=== PATIENT | female | born 1975 | race African-American/Black ===

== ENCOUNTER → 2019-09-29 08:40 | Outpatient (CLI) | payer OTHER, SELFPAY ==
--- NOTE | 2019-09-29 | DI.MRI.S_ITS ---
PROCEDURE: MR SHOULDER RT W CON INDICATIONS: PAIN IN RIGHT SHOULDER CERVIAL RADICULOPATHY TECHNIQUE: After the administration of 12 mL of dilute intra-articular Gadolinium contrast, oblique coronal T1 and T2 spin echo with fat saturation, oblique sagittal T1 spin echo with and without fat saturation, oblique sagittal T2 fast spin echo with fat saturation, axial T1 spin echo with fat saturation through the shoulder. COMPARISON: None. FINDINGS: Image quality: Excellent. Rotator cuff: There is a low-grade, partial, undersurface tear of the rotator cuff at the junction of the supraspinatus and infraspinous tendons (series 9, image 6; series 7, images 13-14 the supraspinatus and infraspinous tendons are thickened with increased internal signal compatible with tendinosis. The subscapularis tendon is intact throughout. No rotator cuff muscle atrophy on sagittal images. Bones and bursae: No bone marrow contusions or fractures. Mild acromioclavicular joint osteoarthritic degeneration. The acromion is downsloping, without an os acromiale. Fluid is noted in the subacromial/subdeltoid bursa compatible with moderate bursitis. Capsule and soft tissues: The labrum and glenohumeral ligaments appear intact. The long head of the biceps tendon demonstrates normal location and morphology. The rotator interval appears normal, without fibrosis. The coracohumeral ligament is of normal thickness. No intra-articular bodies. There is thickening of the synovium in the axillary pouch compatible with synovitis. IMPRESSION: 1. Low-grade, partial, undersurface tear of the rotator cuff at the junction of the supraspinatus and infraspinous tendons. 2. Supraspinous and infraspinatus tendinosis. 3. Mild acromioclavicular joint osteoarthritis. 4. Subacromial/subdeltoid bursitis. 5. Glenohumeral synovitis. Dictated by: Pricila Olivo MD, PhD on 09/29/2019 at 15:53 Approved by: Pricila Olivo MD, PhD on 09/30/2019 at 10:06
--- NOTE | 2019-09-29 | DI.RAD.S_ITS ---
PROCEDURE: FL SHOULDER INJECTION MR/CT RT INDICATIONS: PAIN IN RIGHT SHOULDER CERVIAL RADICULOPATHY TECHNIQUE: The indications, alternatives, benefits, risks, and complications of the procedure were explained to the patient. Written informed consent was obtained and placed in the chart. The shoulder was examined fluoroscopically and a site for needle placement chosen for entry into the glenohumeral joint from an anterior approach. The skin was prepped and draped in a sterile fashion, and 1% lidocaine infiltrated from skin down to joint capsule. A spinal needle was inserted into the glenohumeral joint, and a small amount of iodinated contrast media injected to confirm intra-articular placement of the needle tip. This was followed by approximately 12 mL dilute solution of a gadolinium containing MR contrast agent. The needle was removed and a dressing was applied. The patient was given postprocedural instructions and sent to the MR suite for MR imaging. FINDINGS: A single fluoroscopic spot image demonstrates intra-articular location of injected iodinated contrast. IMPRESSION: Successful fluoroscopically guided administration of dilute Gadolinium solution into the shoulder joint for MR arthrogram. Dictated by: Sammy Fermin M.D. on 09/29/2019 at 10:59 Approved by: Sammy Fermin M.D. on 09/29/2019 at 10:59
--- NOTE | 2019-09-29 | DI.MRI.S_ITS ---
PROCEDURE: MR CERVICAL SPINE WO CON INDICATIONS: PAIN IN RIGHT SHOULDER CERVIAL RADICULOPATHY TECHNIQUE: Noncontrast sagittal T1 spin echo and T2 fast spin echo, sagittal STIR, foraminal oblique sagittal T2 fast spin echo, and axial gradient echo or T2 fast spin echo through the cervical spine. COMPARISON: None. FINDINGS: Image quality: Excellent. Alignment and Curvature: There is loss of normal cervical lordosis. Bone Marrow: Marrow demonstrates normal overall signal. Spinal Cord: Visualized spinal cord has normal size and signal. No cerebellar tonsillar herniation. Paraspinous Soft Tissues: No paravertebral masses. Prevertebral soft tissues are normal in thickness. C2-C3: Normal appearance. C3-C4: Mild disc desiccation. No significant canal, nor foraminal stenosis. C4-C5: Mild disc height loss. Moderate disc desiccation. Mild diffuse disc bulge with superimposed left paracentral protrusion. Mild facet and uncovertebral hypertrophy bilaterally. Severe canal stenosis. Mild left cord flattening. Mild bilateral foraminal stenosis. C5-C6: Mild disc height loss. Moderate disc desiccation. Mild diffuse disc bulge. Mild facet and uncovertebral hypertrophy bilaterally. Moderate canal stenosis. Mild bilateral foraminal stenosis. C6-C7: Mild facet and uncovertebral hypertrophy bilaterally. No canal stenosis. Mild bilateral foraminal stenosis. C7-T1: Mild facet and uncovertebral hypertrophy bilaterally. Mild canal stenosis. Mild bilateral foraminal stenosis. IMPRESSION: 1. Multilevel degenerative disc and facet disease, as well as uncovertebral hypertrophy. 2. Multilevel canal stenoses, worst at C4-C5, where there is associated cord flattening present as described above. 3. Mild multilevel foraminal stenoses. Dictated by: Maria Elena Sykes M.D. on 09/29/2019 at 10:49 Approved by: Maria Elena Sykes M.D. on 09/29/2019 at 10:52
== END ==
PROVIDERS: Referring Provider Registered Nurse Diabetes Educator; Visit Provider Registered Nurse Diabetes Educator
DX: M50.121 Cervical disc disorder at C4-C5 level with radiculopathy (principal); M47.22 Other spondylosis with radiculopathy, cervical region; M48.02 Spinal stenosis, cervical region; M25.511 Pain in right shoulder; M75.111 Incomplete rotator cuff tear or rupture of right shoulder, not specified as traumatic; M19.011 Primary osteoarthritis, right shoulder; M75.51 Bursitis of right shoulder; M65.811 Other synovitis and tenosynovitis, right shoulder
CPT/HCPCS: 23350; 72141; 73222; 77002

== ENCOUNTER → 2020-06-15 08:52 | Outpatient (CLI) | payer OTHER, SELFPAY ==
[2020-06-15 12:35] LABS: COVID19 -Nasal RAPID Negative (Negative)
== END ==
PROVIDERS: Visit Provider Student in an Organized Health Care Education/Training Program
DX: Z11.59 Encounter for screening for other viral diseases (principal)
CPT/HCPCS: 87635

== ENCOUNTER 2020-06-16 06:01 | Day surgery (SDC) | payer OTHER, SELFPAY ==
[2020-06-16] VITALS (11 sets, daily range): BP systolic 137–158; BP diastolic 73–99; PULSE 64–93; RESP 10–18; TEMP 35.9–36.5; O2SAT 95–100; BMI 27.4
[2020-06-16] MEDS: LACTATED RINGERS 1,000 ML 42 ML IV ×2 (07:17→08:53)
[2020-06-16] MEDS: MIDAZOLAM 2 MG/2 ML VIAL IV (07:38)
[2020-06-16] MEDS: fentaNYL 100 MCG/2 ML INJ 50 MCG IV ×3 (07:38→10:01)
--- NOTE | 2020-06-16 07:40 | PM.PREOP ---
Pre-operative Note COVID-19 COVID-19 status: Negative Result date/Date tested (Pos, Neg/Pending): 06/14/20 Interval Note History & Physical reviewed/Exam performed by Physician: Yes Changes to H&P: No
[2020-06-16] MEDS: CEFAZOLIN 2 GM/100 ML FROZ.PIGGY IV (07:44)
--- NOTE | 2020-06-16 07:50 | SUR.PREOP ---
Block start time [0738] . Monitoring initiated and maintained throughout procedure. Oxygen 2l/nc and medications given per anesthesiologist instructions. Patient remained stable throughout procedure, no adverse reactions noted. Block end time [0741].
--- NOTE | 2020-06-16 08:19 | SUR.OPER ---
Beach chair with [place] shoulder positioner. Lower body on padded OR bed. Head in foam padded head cradle, secured with straps. Non-operative arm secured <90 degrees abduction. Pillow under knees. Safety belt at thigh. Cloth tape over blanket over lower legs.
[2020-06-16] MEDS: SODIUM CHLORIDE IRRIG SOLUTION 3,000 ML, EPINEPHrine 1 MG IRR (08:45)
--- NOTE | 2020-06-16 09:33 | PM.OP.1 ---
Operative Date/Time/Diagnoses Date of procedure: 06/16/20 Time of procedure: 08:00 Pre-op diagnosis: Right shoulder partial rotator cuff tear Post-op diagnosis: same Procedure & Clinicians Procedure: Right shoulder arthroscopic debridement with subacromial decompression and repair of partial rotator cuff tear Same procedure as scheduled: Yes Indications: Right shoulder impingement with partial rotator cuff tear Surgeon: Jitendra Dick Mechanical Engineering Specialist: Gustavo Desai Anesthesia Type: General and Peripheral nerve block Operative Notes Findings: High-grade articular sided partial tear involving posterior aspect of the supraspinatus. No sign of any full-thickness tears. No sign of any significant arthritic changes in the glenohumeral joint. Some degenerative changes throughout the labrum but no significant biceps pathology or tearing of the bicipital anchor. No loose bodies. Subscapularis free of any significant tearing. Signs of synovitis and bursitis in the subacromial and subdeltoid space. Mild impingement lesion with a type 2 acromion. Some early signs of AC joint arthritis. Closure Type: primary Specimen(s): none sent Estimated Blood Loss (mL): 5 Blood products transfused: none Procedure in detail: On date of service, Patient was met in the holding area. The operative site was signed and witnessed by the OR staff. The surgeries once again discussed with the patient and any remaining questions they had were answered fully. Patient was taken back to the operating theater and placed on the operating table in a supine position. Great care was taken to ensure that all bony prominences were properly padded. Patient was then placed into the beach chair position. The head and neck were properly positioned and secured. A timeout was performed verifying patient's name, procedure, and the operative site. The upper extremity was then prepped and draped in the normal sterile fashion. Previously, the bony anatomy and portal sites were marked out as well as injected with Marcaine with epinephrine. An 11 blade was used to make an incision in the posterior aspect of the shoulder. The camera was placed, and a diagnostic shoulder scope was performed. Findings listed above. Next under direct visualization, a anterior portal was made. Extensive debridement of the glenohumeral joint was performed. As stated above patient had some degenerative tearing to the labrum as well as signs of partial tearing throughout the articular side the rotator cuff. We also debrided the partial articular sided rotator cuff tear. This was then tagged with suture material so we could find the exact same spot on the bursal side. Next the camera was placed into the subacromial space. A lateral portal was obtained under direct visualization. A combination of the shaver and vapor wand, a debridement of the inflamed tissue as well as inflamed bursa was performed. The lateral gutter was also cleaned out. This gave us good visualization of the bursal aspect of the rotator cuff as well as the acromial arch. There was an obvious impingement lesion in the acromial arch. Next we turned our attention to the subacromial decompression. Next, a mechanical rasp was then used to do a subacromial decompression. This allowed us to convert the acromion to a type I acromial. This also allowed us to shave down the bony lesion in the acromial space. The rasp was placed into the lateral portal as well as the anterior portal in order to do a complete subacromial decompression. We next turned our attention to the distal clavicle. Using the shaver in the vapor wand we were able to clean out all the soft tissue around the distal clavicle as well as into the a.c. joint. This gave us good visualization of the arthritic changes to the distal clavicle as well as good of the a.c. joint allowing us to assess our distal clavicle excision. Of the inferior osteophytes coming off the distal clavicle. Using the mechanical rasp in the anterior portal, we were able to remove the inferior osteophytes as well as do a distal clavicle excision. The camera was then placed into the anterior portal which gave us a direct visualization of the a.c. joint allowing us to assess the distal clavicle excision. We then turned our attention to the rotator cuff tear. Camera was placed back into the glenohumeral joint. Two suture tacks were placed spanning the region of partial tearing. Once the anchors were inserted camera was back into the subacromial space where we could see the suture material. One strand from each anchor was pulled out through a cannula. This was tied into a non sliding knot. The remaining sutures were then used to pull this back into the shoulder anchoring the knot across partial tear. Next, the 2 remaining sutures which were 1 limb from each anchor were then pulled out through the cannula and then placed into a SwiveLock anchor. This anchor was then inserted laterally providing a tenodesis and anchoring of the partial rotator cuff tear. Shoulder was taken through range of motion and re-evaluated. There was good fixation of the partial tear and no other abnormalities noted. There had been good decompression of the subacromial space as well as the distal clavicle. Shoulder was cleaned dried dressed and patient was taken to the PACU in stable condition. Complications: none Post-operative Condition: stable Disposition: PACU Plan for aftercare: Patient will follow our postoperative protocol for PASTA repair
[2020-06-16] MEDS: HYDROCODONE/ACET 5/325 TABLET 1 TAB PO (10:24)
[2020-06-16] MEDS: hydrOXYzine pamoate 25 MG CAPSULE PO (10:52)
[2020-06-16] MEDS: ONDANSETRON 4 MG/2 ML INJ IV (11:15)
== END 2020-06-16 11:50 | disposition home or self-care (01) ==
PROVIDERS: Referring Provider Orthopaedic Surgery; Visit Provider Orthopaedic Surgery
PROC: (CPT 29827; principal; 2020-06-16 07:45)
DX: M75.111 Incomplete rotator cuff tear or rupture of right shoulder, not specified as traumatic (principal); M75.41 Impingement syndrome of right shoulder; M19.011 Primary osteoarthritis, right shoulder; M65.811 Other synovitis and tenosynovitis, right shoulder; M75.51 Bursitis of right shoulder; M25.711 Osteophyte, right shoulder; F12.90 Cannabis use, unspecified, uncomplicated; I10 Essential (primary) hypertension; G43.909 Migraine, unspecified, not intractable, without status migrainosus
CPT/HCPCS: 29827; 29824; 29826; 29823; 64415; J0171; J0330; J0690; J1100; J2250; J2405; J2704; J3010

== ENCOUNTER 2021-03-12 12:17 | Emergency (ER) | payer OTHER, SELFPAY ==
[2021-03-12 12:24] VITALS: BP 153/73; PULSE 75; RESP 18; TEMP 36.4; O2SAT 98; BMI 28.0
--- NOTE | 2021-03-12 13:24 | ED.BACK ---
HPI - Back Pain/Injury General Chief Complaint: Back Pain/Injury Stated Complaint: Rt Sided Lower Back Pain Time Seen by Provider: 03/12/21 13:24 Source: patient Limitations: no limitations History of Present Illness HPI Narrative: This is a 45-year-old female comes emergency department with complaint of right-sided lower back pain. Patient states on Saturday, 2 days ago she was opening a door while caring a box in the box slipped and she went to grab it and tweaked her back. She states she has had pain across both sides of the back but a low bit more on the right than the left since then and has not been improving. She does have a history of low back pain and had a laminectomy several years ago. She states she has had mild symptoms in the particularly at the end of the day but always resolved on its own and she has not required any hospital or doctor visits. Patient states her pain has been persistent and not improved. She did try Tylenol with minimal improvement. She tried a [place] which was much more helpful but pain returned after it wore off. Patient does have some radiation down her legs particularly when going from a seated to standing position. Patient denies any new numbness or tingling currently but had some immediately afterwards. She wide 1 episode where she states she did make it to the bathroom to urinate but has not had fecal or urinary incontinence or loss of sensation or saddle anesthesia. Patient has had shoulder surgery but no other major surgeries. She has history of hypertension and takes medication for this. She was seen by Dr. Garcia in [place] for her spinal surgeon. Related Data Home Medications Medication Instructions Recorded Confirmed acetaminophen 325 mg capsule 500 mg PO Q4H PRN 06/16/20 06/16/20 (Tylenol) Previous Rx's Medication Instructions Recorded hydrocodone 5 mg-acetaminophen 325 2 tab PO Q4-6H PRN #60 tab 06/16/20 mg tablet ([place]) hydroxyzine pamoate 25 mg capsule 25 mg PO TID-QID PRN #60 cap 06/16/20 (Vistaril) diazepam 10 mg tablet (Valium) 10 mg PO TID PRN #10 tab 03/12/21 hydrocodone 5 mg-acetaminophen 325 1 tab PO Q6H PRN #10 tab 03/12/21 mg tablet Allergies Allergy/AdvReac Type Severity Reaction Status Date / Time codeine [CODEINE] Allergy Severe NAUSEA, Verified 06/16/20 06:39 THROAT CLOSES UP pineapple [PINEAPPLE] Allergy Unknown ITCHING Verified 06/16/20 06:39 PURPURA, ORAL CAVITY SWELLING Review of Systems Review of Systems ROS Unobtainable: All systems reviewed & are unremarkable except as noted in HPI and below Patient History Medical History Arthritis of right acromioclavicular joint Arthritis of right glenohumeral joint DDD (degenerative disc disease) Partial tear of rotator cuff Rotator cuff impingement syndrome of right shoulder Spinal stenosis, cervical region Social History household members: spouse Smoking Status: Current every day smoker alcohol intake: current Smoking Status: Current every day smoker alcohol intake frequency: 0-2 drinks per day Substance Use Type: marijuana Exam Narrative Exam Narrative: GENERAL: Alert and oriented x three, female in moderate distress. Patient is much more comfortable standing than seated. HEENT: Head normocephalic, atraumatic, EOMI, pupils reactive, face symmetric, moist mucous membranes NECK: Supple, full range of motion CARDIOVASCULAR: Regular rate and rhythm without murmurs, rubs or gallops. RESPIRATORY: Breath sounds equal bilaterally, no wheezes rales or rhonchi. ABDOMEN: Soft, nontender. Normoactive bowel sounds all 4 quadrants. No guarding or rebound, rigidity, no mass : No CVA tenderness BACK: No cervical, thoracic or lumbar vertebral point tenderness. Patient is tender on the left lateral lumbar soft tissue about 2-3 cm from the L3-L4 region. Have some muscle tightness on the right and has some right piriformis tenderness on palpation. Has decreased range of motion. Patient's gait is antalgic. Rectal exam is deferred. Muscle strength is 5/5 in lower extremities, DTRs are 2/4 and lower extremities. Sensation is intact in the lower extremities. EXTREMITIES: Normal range of motion, no clubbing or edema. Neurovascularly intact NEUROLOGICAL: Cranial nerves II through XII grossly intact. Moving all extremities SKIN: Warm, dry, no petechiae, no rashes or lesions. Initial Vital Signs Initial Vital Signs: Vital Signs Temperature 97.5 F L 03/12/21 12:24 Pulse Rate 75 03/12/21 12:24 Respiratory Rate 18 03/12/21 12:24 Blood Pressure 153/73 H 03/12/21 12:24 Pulse Oximetry 98 03/12/21 12:24 Course Orders Ordered: Discontinued Medications Diazepam (Diazepam 5 Mg Tablet) 10 mg PO NOW ONE Stop: 03/12/21 13:50 Last Admin: 03/12/21 14:00 Dose: 10 mg Documented by: NEVIN Ketorolac Tromethamine (Ketorolac 30 Mg/Ml Vial) 30 mg IM NOW ONE Stop: 03/12/21 13:50 Last Admin: 03/12/21 14:01 Dose: 30 mg Documented by: NEVIN Vital Signs Vital signs: Vital Signs - 8 hr 03/12/21 12:24 03/12/21 14:06 Temperature 97.5 F L Pulse Rate 75 61 Respiratory Rate 18 18 Blood Pressure 153/73 H 128/65 Pulse Oximetry 98 99 MDM - Back Pain/Injury MDM Narrative Medical decision making narrative: This is a 45-year-old female with history of low back pain who had laminectomy several years ago. She had exacerbating incident where she was opening a door holding a box started to slip and she caught it and tweaked her back. She has since had pain for the past 2 days which has not resolved. It does improve with [place] but then recurs. Patient has tried oral home medications [id number] as well as prescription but only has 2 tablets of [place] left. She had 1 episode where she urinated immediately when it occurred but states she was in significant pain and could not get to the bathroom. She has not had any additional episodes saddle anesthesia or other red flag symptoms. Plan for short course of narcotic pain medication muscle relaxer and patient asked to follow up with her spinal surgeon if not improving. We did discuss red flag symptoms and reasons to return emergently which she expresses understanding. Discharge Plan Departure Patient Disposition: Home Clinical Impression: Acute back pain with sciatica Instructions: DI for Back Pain With Sciatica Activity Restrictions/Additional Instructions: Follow-up with your spinal surgeon, call this week for an appointment if her symptoms are not improving. You may take ibuprofen up to 800 mg every 8 hours. You can take muscle relaxer with this medication, you can take 1 tablet every 8 hours as needed. You may also take narcotic pain medication 1-2 tablets every 6 hours as needed. This medication can make you sleepy do not drive, perform hazardous activities or make any major decisions while taking it. This medication will make you constipated please take a stool softener once to twice daily until stools are soft and regular. Prescription to [facility]. Please return for fevers, rapidly worsening pain, numbness, loss of sensation, weaknessor inability to lift your foot or leg, new loss of bowel or bladder control, numbness in your groin, or other new or concerning symptoms. Prescriptions: New hydrocodone-acetaminophen 5-325 mg tablet 1 tab PO Q6H PRN (Reason: pain) Qty: 10 RF: 0 diazepam [Valium] 10 mg tablet 10 mg PO TID PRN (Reason: muscle spasm) Qty: 10 RF: 0 No Action acetaminophen [Tylenol] 325 mg Capsule 500 mg PO Q4H PRN (Reason: sleep) RF: 0 hydrocodone-acetaminophen [[place]] 5-325 mg tablet 2 tab PO Q4-6H PRN (Reason: pain) Qty: 60 RF: 0 hydroxyzine pamoate [Vistaril] 25 mg capsule 25 mg PO TID-QID PRN (Reason: spasms) Qty: 60 RF: 0 Referrals: Miscellaneous,Doctor, MD [Primary Care Provider] - Stand Alone Forms: School Release Note
[2021-03-12] MEDS: diazePAM 5 MG TABLET 10 MG PO (14:00)
[2021-03-12] MEDS: KETOROLAC 30 MG/ML VIAL IM (14:01)
[2021-03-12 14:06] VITALS: BP 128/65; PULSE 61; RESP 18; O2SAT 99
== END 2021-03-12 14:31 | disposition home or self-care (01) ==
PROVIDERS: Emergency Provider Emergency Medicine
DX: M54.41 Lumbago with sciatica, right side (principal)
CPT/HCPCS: 96372; 99283; J1885

== ENCOUNTER → 2022-11-21 12:49 | Outpatient (CLI) | payer OTHER, SELFPAY ==
--- NOTE | 2022-11-21 | DI.CT.S_ITS ---
PROCEDURE: CT LUMBAR SPINE WO CON INDICATIONS: Radiculopathy, lumbar region TECHNIQUE: Noncontrast 3 mm thick sections acquired from the T12 level to the sacrum. Sagittal and coronal reformats were constructed. For radiation dose reduction, the following was used: automated exposure control. COMPARISON: [facility], MR, MR LUMBAR SPINE WITH/WITHOUT CONTRAST, 08/28/2021, 10:17. [facility], CR, XR LUMBAR SPINE WITH FLEXION EXTENSION 5 VIEWS, 06/06/2022, 8:13. FINDINGS: Image quality: Excellent. Bones: There is normal bony alignment. No acute vertebral body compression fractures. No suspicious lytic or blastic bony lesions. No pars defects. T12-L1: Normal. L1-L2: Normal. L2-L3: The disc height is well preserved. Mild disc bulge is seen. There is mild right-sided and moderate left-sided neural foraminal narrowing. No significant central canal narrowing is seen. L3-L4: The disc height is well preserved. Mild disc bulge is seen, which is eccentric to the left. There is moderate left-sided and minimal right-sided neural foraminal narrowing. Minimal central L4-L5: The disc height is well preserved. There is moderate disc bulge seen, which is eccentric to the left and continues into the left neural foramen, as on series 4, image 61. Mild facet joint hypertrophy is seen. There is mild right-sided and moderate left-sided neural foraminal narrowing. Mild to moderate central canal narrowing can be seen. L5-S1: Mild loss of disc height is seen. Endplate irregularity and sclerosis can be seen. Vacuum disc phenomenon is seen at this level. Moderate generalized disc bulge is seen. There is moderate to severe bilateral neural foraminal narrowing seen. Moderate central canal narrowing is seen. Soft tissues: No retroperitoneal masses or hematomas. Visualized aorta is normal in caliber. A mild periumbilical hernia is seen, containing fat. IMPRESSION: Lumbar spine degenerative changes are seen, which are overall worst at the L5-S1 level. Additional findings: Fat containing periumbilical hernia Dictated by: Gurmeet Wolff M.D. on 11/21/2022 at 16:00 Approved by: Gurmeet Wolff M.D. on 11/21/2022 at 16:04
== END ==
PROVIDERS: Referring Provider Physician Assistant Surgical; Visit Provider Physician Assistant Surgical
DX: M47.26 Other spondylosis with radiculopathy, lumbar region; M47.27 Other spondylosis with radiculopathy, lumbosacral region; K42.9 Umbilical hernia without obstruction or gangrene; M48.062 Spinal stenosis, lumbar region with neurogenic claudication; Z98.890 Other specified postprocedural states
CPT/HCPCS: 72131